=== PATIENT | female | born 1975 | race Caucasian/White ===

== ENCOUNTER 2018-08-02 12:56 | Emergency (ER) | payer BC, OTHER ==
[~2018-08-02] VITALS: Ht 162.6 cm; Wt 65.3 kg
[~2018-08-02 12:56] MED LIST: IBUPROFEN 600600 M1 PO; MULTIVITAMINS PO; NORCO 5-325 TA1 EACH PO; SIMVASTATIN40 MG PO
[2018-08-02 14:39] VITALS: BP 130/75
== END 2018-08-02 14:40 | disposition home or self-care (01) ==
LOC: ER 12:56
DX: L02.414 Cutaneous abscess of left upper limb (principal); E78.00 Pure hypercholesterolemia, unspecified